=== PATIENT | male | born 1990 ===

== ENCOUNTER 2024-01-14 03:41 | Emergency (ER) | payer BC ==
[~2024-01-14] VITALS: Ht 170.2 cm; Wt 68.2 kg
[2024-01-14 03:46] VITALS: TEMP 97.8
[2024-01-14] MEDS ORDERED: diphenhydrAMINE 50 MG/ML 1 ML VIAL IM ONE (04:00)
[2024-01-14] MEDS ORDERED: Hyoscyamine 0.125 MG Sublingual TAB SL ONE (04:45)
[2024-01-14] MEDS ORDERED: Home Ondansetron ODT 4 MG #2 ODT/PACK PO ONE (05:15)
[2024-01-14 05:25] VITALS: BP 122/78; PULSE 90
== END 2024-01-14 05:25 | disposition home or self-care (01) ==
LOC: COL.ER 03:41
DX: R11.2 Nausea with vomiting, unspecified (principal); J02.0 Streptococcal pharyngitis